=== PATIENT | male | born 1970 | race African-American/Black ===

== ENCOUNTER 2022-01-02 20:07 | Inpatient (IN) | payer MEDICARE, MEDICAID ==
[2022-01-02] MEDS ORDERED: MAGNESIUM HYDROXIDE 2,400 MG/10 ML CUP PO PRN (23:37)
[2022-01-02] MEDS ORDERED: MAG HYDROX/AL HYDROX/SIMETH 30 ML CUP PO PRN (23:37)
[2022-01-02] MEDS ORDERED: LORazepam 1 MG TAB PO PRN (23:37)
[2022-01-02] MEDS ORDERED: HALOPERIDOL LACTATE 5 MG/ML 1 ML VIAL IM PRN (23:37)
[2022-01-02] MEDS ORDERED: ACETAMINOPHEN TAB 325 MG TAB PO PRN (23:37)
[2022-01-02] MEDS ORDERED: haloperidoL 5 MG TAB PO PRN (23:38)
[2022-01-02] MEDS ORDERED: LORazepam 2 MG/ML INJ IM PRN (23:38)
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
--- NOTE | 2022-01-03 16:20 | P.CONS ---
History of Present Illness - Reason for Consult Consult date: 01/03/22 Medical management - History of Present Illness Subjective 51-year-old male who is being admitted to the psych unit. At the time of examination patient is not a very good historian. We are consulted for medical management. Patient denies chest pain, no vomiting. He denies being diabetic. Review of Systems ROS unobtainable: due to mental status Past Medical History Smoking Status: Unknown if ever smoked Medications and Allergies Home Medications Medication Instructions Recorded Confirmed Type No Known Home Medications 01/03/22 01/03/22 History Allergies Allergy/AdvReac Type Severity Reaction Status Date / Time No Known Allergies Allergy Verified 01/02/22 23:37 Physical Exam Vitals: Vital Signs Temp Pulse Resp BP Pulse Ox 01/03/22 10:53 98.1 F 83 16 121/68 96 Intake and Output 01/03/22 01/03/22 01/03/22 06:59 14:59 22:59 Other: Weight 90.91 kg 94 kg Constitutional: No acute distress, poor historian Eyes: Anicteric sclerae, moist conjunctiva, no lid-lag, PERRLA ENMT: NC/AT,Oropharynx clear, no erythema, exudates Neck:Supple, FROM, no masses, or JVD Lungs: Clear to auscultation, Clear to percussion, Normal respiratory effort, no accessory muscle use Cardiovascular: Heart regular in rate and rhythm, No murmurs, gallops, or rubs no peripheral edema Abdominal: Soft Nontender, nom distended, no guarding, no rebound or rigidity, Normoactive bowel sounds No hepatomegaly, No splenomegaly, No palpable mass No abdominal wall hernia noted Skin: Normal temperature, tone, texture, turgor, No induration No subcutaneous nodules, No rash, lesions, No ulcers Extremities:No digital cyanosis No clubbing Psychiatric: Poor historian Neuro: Muscles Strength 5/5 in all 4 extremities, Sensation to light touch grossly present throughout, Cranial nerves II-XII grossly intact. No focal sensory deficits Assessment and Plan Plan: 1. Schizophrenia: Psychiatry following. On Haldol invega and Ativan. 2. Continue to follow for any medical needs. Thank you for the consultation.
[2022-01-04] MEDS: PALIPERIDONE 3 MG TAB.ER.24 PO SCH (08:53)
--- NOTE | 2022-01-04 14:23 | P.PN ---
Progress Note - Text Progress Note Date: 01/04/22 Clinical Problems: Schizophrenia chronic with acute exacerbation, poor compliance with psychiatric treatment Interim history: I reviewed the medical record, interviewed the patient and discussed the treatment and treatment plan with the treatment team. I approached him [place] [facility] [place] looking at book titles on the bookshelf talking to himself in an animated manner and laughing uncontrollably. He is pleasant approach and denied problems. His speech is grossly disorganize d. The social worker palliative care spoke with his almond roaster at [facility]. He has a history of schizophrenia poor compliance with treatment. He was treated with Invega Sustenna but has not had it injections since at least June 2021. She stated that when he is complaint with treatment he is organized, pleasant and cooperative. He is attending therapeutic groups and activities. He only slept 4 hours last night. He has had no episodes of behavioral dyscontrol. Mental status exam: He presented as a casually groomed 51-year-old male who was pleasant on approach. He made intermittent eye contact and did not appear at times to be doing to the interview. He appeared to be internally preoccupied. He had a blunted facial expression. He is not restless or agit ated. His speech was spontaneous with normal rate and rhythm. Her affect was at times elevated and appropriate. He did not express suicidal ideation or wishes. His thinking was grossly disorganized and the content was incoherent. At times he appeared to be responding to internal stimuli. Assessment: He is severely mentally ill and unchanged from admission. Plan: Continue inpatient treatment. Safety precautions. Awaiting probate hearing. Continue Invega 3 mg daily and titrated according to clinical response. Transition to Invega sustenna prior to discharge. Haldol and/or Ativan for agitation acute psychosis. Encourage participation in therapeutic groups and activities. Evaluate clinical status response to treatment daily basis.
[2022-01-05] MEDS: PALIPERIDONE 3 MG TAB.ER.24 PO SCH (08:40)
--- NOTE | 2022-01-05 14:56 | P.PN ---
Progress Note - Text Progress Note Date: 01/05/22 Interval History: Patient was seen wandering in his and was directable and agreeable to speak with comic writer. Patient was mumbling and difficult to comprehend. He appears to have disorganized speech and was rambling at times. He was somewhat directable during conversations however answered some questions inappropriately. He has little understanding of why he is in the hospital. He spoke briefly about his family. He is denying any depression or any anxiety at this time. He was responding to internal stimuli. He claims that he will be taking the medications. At this time patient denies any suicidal or homical ideations, intent or plan. Patient denies any auditory, visual hallucinations. Patient denies any side effects from the medications and has been compliant with meds. He claims that he sleeps fairly and nighttime. Mental Status Exam: General Appearance: Patient appears to be stated age is alert, directable, and attempts to be cooperative. Behavior: Patient is calmly seated without any agitated behavior. Speech: Patient's speech is nonpressured. Rambling at times. Difficult to comprehend. Mood/Affect: Mood is improving mildly, affect is congruent and constricted. Suicidality/Homicidality: Patient denies having any suicidal or homicidal ideation intent or plan. Perceptions: Patient denies any visual hallucinations and denies any auditory hallucinations Though content/process: Patient was rambling, tangential, disorganized. Memory and concentration: AOX3, grossly intact for the purposes of this session Judgment and insight: Chronically poor, improving mildly Assessment Schizophrenia Poor medication compliance Plan: -Patient continues to meet criteria for inpatient psychiatric admission for symptom stabilization and safety. Patient has not signed adult voluntary form and medication consent and was placed in patient's chart. -Medications: Increased paliperidone by mouth to 6 mg daily at bedtime for psychosis. Plan will be to transition patient onto long-acting injection. -When necessary Ativan and Haldol for agitation/aggression. -NRT -not needed as patient does not smoke. -SW on board for discharge planning. Encouraged the patient to participate in milieu. Currently awaiting deferral with associate attorney and court date. he currently lives in a room and board in [facility].
[2022-01-05] MEDS ORDERED: PALIPERIDONE 6 MG TAB.ER.24 PO SCH (21:00)
--- NOTE | 2022-01-06 10:28 | P.PN ---
Progress Note - Text Progress Note Date: 01/06/22 Interval History: Patient was seen wandering in the lounge today as he was watching television e arlier. Patient continues to be difficult to comprehend at times as he is wearing a mask and also mumbling. He asked several questions about the medications or writer editor and asked "what's inside of it". He is agreeable to continue with taking medications. His speech appears to be mildly improving since yesterday. Continues to be fairly disorganized. Continues to have poor hygiene and foul-smelling. He has little understanding of why he is in the hospital. He was asking about potential discharge today. He is denying any depression or any anxiety at this time. He claims that he will be taking the medications. At this time patient denies any suicidal or homical ideations, intent or plan. Patient denies any auditory, visual hallucinations. Patient denies any side effects from the medications and has been compliant with meds. He claims that he sleeps fairly at nighttime. Mental Status Exam: General Appearance: Patient appears to be stated age is alert, directable, and attempts to be cooperative. Behavior: Patient is calmly seated without any agitated behavior. Speech: Patient's speech is nonpressured. Rambling at times. Difficult to comprehend, improving mildly Mood/Affect: Mood is improving mildly, affect is congruent and constricted. Suicidality/Homicidality: Patient denies having any suicidal or homicidal ideation intent or plan. Perceptions: Patient denies any visual hallucinations and denies any auditory hallucinations Though content/process: Patient was rambling, tangential, disorganized, improving mildly Memory and concentration: AOX3, grossly intact for the purposes of this session Judgment and insight: Chronically poor, improving mildly Assessment Schizophrenia Poor medication compliance Plan: -Patient continues to meet criteria for inpatient psychiatric admission for symptom stabilization and safety. Patient has not signed adult voluntary form and medication consent and was placed in patient's chart. -Medications: Increased paliperidone by mouth to 9 mg daily at bedtime for psychosis. Plan will be to transition patient onto long-acting injection prior to discharge. -When necessary Ativan and Haldol for agitation/aggression. -NRT -not needed as patient does not smoke. -SW on board for discharge planning. Encouraged the patient to participate in milieu. Currently awaiting deferral with senior trial attorney set for 5/31. he currently lives in a room and board in [facility].
[2022-01-06] MEDS: PALIPERIDONE 3 MG TAB.ER.24 PO SCH (21:09)
--- NOTE | 2022-01-07 18:21 | P.PN ---
Progress Note - Text Progress Note Date: 01/07/22 Interval history: Patient was agreeable to speak with engineering technical writer. He is calm and cooperative, appears to mumble under his breath. At this time patient denies any suicidal or homicidal ideations intent or plan. He reports auditory hallucinations of voices. He denies visual hallucinations. He feels people lie to him sometimes, some paranoid ideations. Patient denies any side effects from the medications and has been compliant with meds. Mental status exam: General Appearance: Patient appears to be stated age. Behavior: No agitated behavior. Patient is calm and directable. Speech: Patient's speech is at times mumbled, and nonpressured. Mood/Affect: Mood is improving mildly, affect is congruent and constricted. Suicidality/Homicidality: Patient denies having any suicidal or homicidal ideation intent or plan. Perceptions: Patient endorses auditory hallucinations, denies visual hallucinations. Though content/process: There is some evidence of paranoid delusional thought content. Thought process is concrete. Memory and concentration: Alert, and oriented to person, place, and time (month, year). Judgment and insight: improving mildly Assessment/Plan: Continue with current diagnosis. Patient continues to meet criteria for inpatient psychiatric admission for symptom stabilization and safety. Patient will be maintained on current psychotropic medication regimen, except for Invega will be increased to 3 mg daily in the AM and 9 mg QHS for psychosis starting tomorrow morning. Monitor for medication compliance and for any psychotropic medication side effects. Will continue to monitor ongoing response to treatment. Encouraged participation in milieu.
[2022-01-07] MEDS: PALIPERIDONE 3 MG TAB.ER.24 PO SCH (20:53)
[2022-01-08] MEDS: PALIPERIDONE 3 MG TAB.ER.24 PO SCH ×2 (08:52→18:57)
--- NOTE | 2022-01-08 18:54 | P.PN ---
Progress Note - Text Progress Note Date: 01/08/22 Interval history: Patient was agreeable to speak with content writer. He is calm and cooperative, appears to mumble under his breath. At this time patient denies any suicidal or homicidal ideations intent or plan. When asked about auditory hallucinations today, he states words are popping in his head. He tends to jump from topic to topic, loose associations. Thoughts are somewhat disorganized still. Some paranoid ideations, reports are trying to hurt him by making him laugh. Patient denies any side effects from the medications and has been compliant with meds. Mental status exam: General Appearance: Patient appears to be stated age. Behavior: No agitated behavior. Patient is calm and directable. Speech: Patient's speech is at times mumbled, and nonpressured. Mood/Affect: Mood is improving mildly, affect is congruent and constricted. Suicidality/Homicidality: Patient denies having any suicidal or homicidal ideation intent or plan. Perceptions: Patient endorses auditory hallucinations, denies visual hallucinations. Though content/process: There is some evidence of paranoid delusional thought content. Thought process is concrete. Memory and concentration: Alert, and oriented to person, place, and time (month, year). Judgment and insight: improving mildly Assessment/Plan: Continue with current diagnosis. Patient continues to meet criteria for inpatient psychiatric admission for symptom stabilization and safety. Patient will be maintained on current psychotropic medication regimen. Continue Invega 3 mg daily in the AM and 9 mg QHS for psychosis. Monitor for medication compliance and for any psychotropic medication side effects. Will continue to monitor ongoing response to treatment. Encouraged participation in milieu.
[2022-01-09] MEDS: PALIPERIDONE 3 MG TAB.ER.24 PO SCH ×2 (09:12→20:51)
--- NOTE | 2022-01-09 10:36 | P.PN ---
Progress Note - Text Progress Note Date: 01/09/22 Interval History: Patient was seen in his room today and agreeable to speak to television writer. Patient continues to be mumbling at times however showing mild improvement in his clarity. He also appears to have improvement in his attention span and also his affect. He claims that he is having a good weekend and denied any complaints. He asked about his medications. We spoke briefly about the long-acting injection. She is denying any depression or anxiety today. Hygiene and grooming improving mildly. He was asking about potential discharge today. He claims that he will be taking the medications. At this time patient denies any suicidal or homical ideations, intent or plan. Patient denies any auditory, visual hallucinations. Patient denies any side effects from the medications and has been compliant with meds. He claims that he sleeps fairly at nighttime. Mental Status Exam: General Appearance: Patient appears to be stated age is alert, directable, and attempts to be cooperative. Behavior: Patient is calmly seated without any agitated behavior. More directable today. Speech: Patient's speech is nonpressured. Rambling at times, improving mildly Mood/Affect: Mood is improving mildly, affect is congruent and constricted. Suicidality/Homicidality: Patient denies having any suicidal or homicidal ideation intent or plan. Perceptions: Patient denies any visual hallucinations and denies any auditory hallucinations Though content/process: Patient was rambling, more goal oriented. improving mildly Memory and concentration: AOX3, grossly intact for the purposes of this session Judgment and insight: Chronically poor, improving mildly Assessment Schizophrenia Poor medication compliance Plan: -Patient continues to meet criteria for inpatient psychiatric admission for symptom stabilization and safety. Patient has not signed adult voluntary form and medication consent and was placed in patient's chart. -Medications: paliperidone by mouth 9 mg daily at bedtime + 3 mg daily for psychosis. Plan will be to transition patient onto long-acting injection prior to discharge. Will likely give loading dose tomorrow. -When necessary Ativan and Haldol for agitation/aggression. -NRT -not needed as patient does not smoke. -SW on board for discharge planning. Encouraged the patient to participate in milieu. Currently awaiting deferral with family law attorney set for 01/10. he currently lives in a room and board in [facility]. likely discharge tomorrow vs sunday
[2022-01-10] MEDS: PALIPERIDONE 3 MG TAB.ER.24 PO SCH ×2 (08:19→20:44)
[2022-01-10 08:20] VITALS: RESP 18
[2022-01-10] MEDS ORDERED: PALIPERIDONE IM 234 MG/1.5 ML SYG IM STA (12:19)
--- NOTE | 2022-01-10 12:20 | P.PN ---
Progress Note - Text Progress Note Date: 01/10/22 Interval History: Patient was seen in his room today and appeared to be a washing his hands and agreeable to speak to ghost writer. Patient continues to be mumbling however is demonstrating improvement in clarity of speech. He appeared to be more directable during conversation. He asked questions about ghost writer today. He claims that he is doing "fine" and has a constricted affect. Attention span is improving. Hygiene and grooming appeared to be mildly improved since yesterday. He states that he is sleeping fairly at nighttime and taking his medications. he is denying any depression or anxiety today. At this time patient denies any suicidal or homical ideations, intent or plan. Patient denies any auditory, visual hallucinations. Patient denies any side effects from the medications and has been compliant with meds. Mental Status Exam: General Appearance: Patient appears to be stated age is alert, directable, and attempts to be cooperative. Behavior: Patient is calmly seated without any agitated behavior. More directable today. Speech: Patient's speech is nonpressured. Rambling at times, improving mildly. Clarity improving. Mood/Affect: Mood is improving mildly, affect is congruent and constricted. Suicidality/Homicidality: Patient denies having any suicidal or homicidal ideation intent or plan. Perceptions: Patient denies any visual hallucinations and denies any auditory hallucinations Though content/process: Patient was rambling, more goal oriented. improving m ildly Memory and concentration: AOX3, grossly intact for the purposes of this session Judgment and insight: Chronically poor, improving mildly Assessment Schizophrenia Poor medication compliance Plan: -Patient continues to meet criteria for inpatient psychiatric admission for symptom stabilization and safety. Patient has not signed adult voluntary form and medication consent and was placed in patient's chart. -Medications: paliperidone by mouth 9 mg daily at bedtime + 3 mg daily for psychosis. Ordered Invega Sustenna loading dose IM 234 mg today. -When necessary Ativan and Haldol for agitation/aggression. -NRT -not needed as patient does not smoke. -SW on board for discharge planning. Encouraged the patient to participate in milieu. Patient signed a role with county attorney on 01/10. he currently lives in a room and board in [facility]. likely discharge tomorrow
[2022-01-11 07:04] VITALS: BP 113/77; PULSE 98; TEMP 98
[2022-01-11] MEDS: PALIPERIDONE 3 MG TAB.ER.24 PO SCH (08:43)
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
== END 2022-01-11 16:10 | disposition home or self-care (01) | DRG 885 ==
LOC: 3MHU 01-03 10:08
PROVIDERS: ADMIT Psychiatry & Neurology Psychiatry; ATTEND Psychiatry & Neurology Psychiatry
DX: F20.9 Schizophrenia, unspecified (principal); F60.0 Paranoid personality disorder; Z91.19 Patient's noncompliance with other medical treatment and regimen; Z91.14 Patient's other noncompliance with medication regimen; T43.96XA Underdosing of unspecified psychotropic drug, initial encounter; Z91.128 Patient's intentional underdosing of medication regimen for other reason; Z28.310 Unvaccinated for COVID-19; Z28.21 Immunization not carried out because of patient refusal; Z79.899 Other long term (current) drug therapy